=== PATIENT | male | born 2000 | race African-American/Black ===

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

== ENCOUNTER 2022-03-19 15:32 | Emergency (ER) | payer SELFPAY | END 2022-03-19 18:49 | disposition left against medical advice (07) | LOC: MW.ED 15:32 | DX: Z53.21 Procedure and treatment not carried out due to patient leaving prior to being seen by health care provider (principal) | CPT/HCPCS: U0002 ==

== ENCOUNTER 2022-06-24 18:34 | Emergency (ER) | payer SELFPAY ==
[2022-06-24] MEDS ORDERED: Gentamicin 0.3% Ophth Soln 5 ML Bottle EYELF SCH (22:00)
[2022-06-25] MEDS ORDERED: Ciprofloxacin 0.3% Ophth Soln 2.5 ML Bottle EYELF SCH
== END 2022-06-24 20:40 | disposition home or self-care (01) ==
LOC: MW.ED 18:34
DX: H10.9 Unspecified conjunctivitis (principal)
CPT/HCPCS: 99283; A9270

== ENCOUNTER 2022-10-01 09:32 | Emergency (ER) | payer SELFPAY | END 2022-10-01 10:45 | disposition left against medical advice (07) | LOC: MW.ED 09:32 | DX: Z53.21 Procedure and treatment not carried out due to patient leaving prior to being seen by health care provider (principal) ==

== ENCOUNTER 2023-07-25 11:48 | Emergency (ER) | payer SELFPAY ==
[2023-07-25 13:50] LABS: BASOPHILS ABSOLUTE AUTO 0.01 K/uL (0.00-0.20); BASOPHILS PERCENT AUTO 0.3 % (0.0-1.0); EOSINOPHILS ABSOLUTE AUTO 0.05 K/uL (0.00-0.45); EOSINOPHILS PERCENT AUTO 1.3 % (0.0-6.0); HEMATOCRIT 46.1 % (42.0-52.0); HEMOGLOBIN 15.5 g/dL (14.0-18.0); IMMATURE GRAN ABSOLUTE AUTO 0.01 K/uL (0.00-0.05); IMMATURE GRAN PERCENT AUTO 0.3 % (0.0-0.4); LYMPHOCYTES ABSOLUTE AUTO 1.42 K/uL (1.00-4.80); LYMPHOCYTES PERCENT AUTO 37.9 % (24.0-44.0); MEAN CORPUSCULAR HEMOGLOBIN 27.5 pg (28.0-32.0); MEAN CORPUSCULAR HGB CONC 33.6 g/dL (32.0-36.0); MEAN CORPUSCULAR VOLUME 81.9 fL (83.0-99.0); MONOCYTES ABSOLUTE AUTO 0.39 K/uL (0.00-0.80); MONOCYTES PERCENT AUTO 10.4 % (0.0-8.0); NEUTROPHILS ABSOLUTE AUTO 1.87 K/uL (1.80-7.70); NEUTROPHILS PERCENT AUTO 49.8 % (41.0-71.0); PLATELET COUNT,PLT 212 K/uL (150-400); RED BLOOD CELL COUNT 5.63 M/uL (4.52-5.90); WHITE BLOOD CELL COUNT,WBC 3.75 K/uL (3.9-11.3)
[2023-07-25 14:15] LABS: A/G RATIO 1.1 (0.9-1.6); BILIRUBIN TOTAL 0.8 mg/dL (0.2-1.0); CALCIUM 9.6 mg/dL (8.5-10.1); CREATININE 1.2 mg/dL (0.8-1.3); EST CRCL DRUG DOSING (CG) 89.32 mL/min; POTASSIUM,K 4.4 mmol/L (3.5-5.1); PROTEIN TOTAL,TP 7.8 g/dL (6.4-8.2)
[2023-07-25 14:19] LABS: APPEARANCE,URINE CLEAR; BILIRUBIN,URINE NEGATIVE (NEGATIVE); COLOR,URINE YELLOW; GLUCOSE,URINE NEGATIVE (NEGATIVE); KETONES,URINE NEGATIVE (NEGATIVE); LEUKOCYTE ESTERASE,URINE NEGATIVE (NEGATIVE); NITRITE,URINE NEGATIVE (NEGATIVE); OCCULT BLOOD,URINE NEGATIVE (NEGATIVE); PROTEIN,URINE NEGATIVE (NEGATIVE); UROBILINOGEN,URINE 0.2 EU/dL (<2.0)
== END 2023-07-25 14:40 | disposition home or self-care (01) ==
LOC: MW.ED 11:48
DX: R10.9 Unspecified abdominal pain (principal)
CPT/HCPCS: 36415; 80053; 81003; 85025; 99283

== ENCOUNTER 2024-05-02 12:28 | Emergency (ER) | payer SELFPAY ==
[2024-05-02 12:43] LABS: APPEARANCE,URINE CLEAR; BILIRUBIN,URINE NEGATIVE (NEGATIVE); COLOR,URINE YELLOW; GLUCOSE,URINE NEGATIVE (NEGATIVE); KETONES,URINE NEGATIVE (NEGATIVE); LEUKOCYTE ESTERASE,URINE TRACE (NEGATIVE); NITRITE,URINE NEGATIVE (NEGATIVE); OCCULT BLOOD,URINE NEGATIVE (NEGATIVE); PROTEIN,URINE NEGATIVE (NEGATIVE); UROBILINOGEN,URINE 0.2 EU/dL (<2.0)
[2024-05-02 13:07] LABS: BACTERIA,URINE FEW (NEGATIVE); EPITHELIAL CELLS,URINE FEW (NONE-FEW); RBC,URINE 0-1 (0-2/HPF)
[2024-05-02 14:12] LABS: C. TRACHOMATIS BY PCR DETECTED; N. GONORRHOEAE BY PCR NOT DETECTED
== END 2024-05-02 14:37 | disposition home or self-care (01) ==
LOC: MW.ED 12:28
DX: A74.9 Chlamydial infection, unspecified (principal); Z79.899 Other long term (current) drug therapy
CPT/HCPCS: 81001; 87086; 87491; 87591; 99283

== ENCOUNTER 2024-05-08 09:11 | Emergency (ER) | payer SELFPAY ==
[2024-05-08] MEDS: Benzocaine 20% Topical Spray UD MUCMEM ONE (09:37)
[2024-05-08] MEDS: Lidocaine 2% Viscous Solution 15 ML UD PO ONE (09:37)
== END 2024-05-08 09:48 | disposition home or self-care (01) ==
LOC: MW.ED 09:11
DX: S09.93XA Unspecified injury of face, initial encounter (principal); Z75.8 Other problems related to medical facilities and other health care; W50.0XXA Accidental hit or strike by another person, initial encounter; Y93.67 Activity, basketball
CPT/HCPCS: 99283; A9270

== ENCOUNTER 2024-05-15 08:12 | Emergency (ER) | payer SELFPAY ==
[2024-05-15 08:34] LABS: APPEARANCE,URINE CLEAR; BILIRUBIN,URINE NEGATIVE (NEGATIVE); COLOR,URINE YELLOW; GLUCOSE,URINE NEGATIVE (NEGATIVE); KETONES,URINE NEGATIVE (NEGATIVE); LEUKOCYTE ESTERASE,URINE NEGATIVE (NEGATIVE); NITRITE,URINE NEGATIVE (NEGATIVE); OCCULT BLOOD,URINE NEGATIVE (NEGATIVE); PROTEIN,URINE NEGATIVE (NEGATIVE); UROBILINOGEN,URINE 0.2 EU/dL (<2.0)
[2024-05-15] MEDS: Lidocaine 4% 1 each Patch TOP SCH (09:02)
== END 2024-05-15 09:10 | disposition home or self-care (01) ==
LOC: MW.ED 08:12
DX: S29.012A Strain of muscle and tendon of back wall of thorax, initial encounter (principal); X50.9XXA Other and unspecified overexertion or strenuous movements or postures, initial encounter
CPT/HCPCS: 71045; 81003; 99283; A9270

== ENCOUNTER 2024-07-04 13:18 | Emergency (ER) | payer SELFPAY | END 2024-07-04 14:39 | disposition home or self-care (01) | LOC: MW.ED 13:18 | DX: S63.501A Unspecified sprain of right wrist, initial encounter (principal); W21.01XA Struck by football, initial encounter; Y93.66 Activity, soccer; Z75.8 Other problems related to medical facilities and other health care | CPT/HCPCS: 73110-26-RT; 73110-RT; 73130-26-RT; 73130-RT; 99283 ==

== ENCOUNTER 2024-08-30 13:47 | Emergency (ER) | payer SELFPAY ==
[2024-08-30] MEDS: Sodium Chloride 0.9% 1,000 ML IV ONE (14:21)
[2024-08-30] MEDS: Ketorolac 30 MG/ML SDV IVPUSH ONE (14:22)
[2024-08-30 14:33] LABS: BASOPHILS ABSOLUTE AUTO 0.01 K/uL (0.00-0.20); BASOPHILS PERCENT AUTO 0.4 % (0.0-1.0); EOSINOPHILS ABSOLUTE AUTO 0.03 K/uL (0.00-0.45); EOSINOPHILS PERCENT AUTO 1.2 % (0.0-6.0); HEMATOCRIT 41.8 % (42.0-52.0); HEMOGLOBIN 14.1 g/dL (14.0-18.0); LYMPHOCYTES ABSOLUTE AUTO 1.32 K/uL (1.00-4.80); LYMPHOCYTES PERCENT AUTO 51.6 % (24.0-44.0); MEAN CORPUSCULAR HEMOGLOBIN 28.2 pg (28.0-32.0); MEAN CORPUSCULAR HGB CONC 33.7 g/dL (32.0-36.0); MEAN CORPUSCULAR VOLUME 83.6 fL (83.0-99.0); MEAN PLATELET VOLUME 10.6 fL (9.4-12.4); MONOCYTES ABSOLUTE AUTO 0.21 K/uL (0.00-0.80); MONOCYTES PERCENT AUTO 8.2 % (0.0-8.0); NEUTROPHILS ABSOLUTE AUTO 0.99 K/uL (1.80-7.70); NEUTROPHILS PERCENT AUTO 38.6 % (41.0-71.0); PLATELET COUNT,PLT 197 K/uL (150-400); WHITE BLOOD CELL COUNT,WBC 2.56 K/uL (3.9-11.3)
[2024-08-30 14:55] LABS: A/G RATIO 1.2 (0.9-1.6); ALBUMIN 3.7 g/dL (3.4-5.0); BILIRUBIN TOTAL 0.4 mg/dL (0.2-1.0); CALCIUM 8.8 mg/dL (8.5-10.1); CARBON DIOXIDE,CO2 25.9 mmol/L (21.0-32.0); CREATININE 1.2 mg/dL (0.8-1.3); EST CRCL DRUG DOSING (CG) 88.83 mL/min; POTASSIUM,K 3.9 mmol/L (3.5-5.1); PROTEIN TOTAL,TP 6.8 g/dL (6.4-8.2)
[2024-08-30] MEDS: Iopamidol 755 MG/ML 500 ML Multipack Bottle IVPUSH STA (15:25)
== END 2024-08-30 16:17 | disposition home or self-care (01) ==
LOC: MW.ED 13:47
DX: R10.84 Generalized abdominal pain (principal); Z75.8 Other problems related to medical facilities and other health care
CPT/HCPCS: 36415; 74160; 80053; 85025; 96361; 96374; 99284; J1885; J7030; Q9967